=== PATIENT | male | born 1965 ===

== ENCOUNTER 2020-02-13 18:48 | Emergency (ER) | payer SELFPAY ==
[2020-02-13 18:57] VITALS: BP 121/81; PULSE 81; RESP 165; TEMP 36.6; O2SAT 95; BMI 25.0
--- NOTE | 2020-02-13 19:24 | W.ED.GENADLT ---
HPI - General Adult General: Chief complaint: Psychiatric Symptoms Stated complaint: mhe Time Seen by Provider: 02/13/20 19:09 Source: patient Mode of arrival: ambulatory Limitations: no limitations History of Present Illness: HPI narrative: Patient is a 54-year-old male who presents to ED today after he was dropped off by police. According to patient he had went to his father's house asking for money and the father called the police. Patient tells me that the police told him he could either go to shelter or go to the emergency department. Patient has zero complaints at this time. Patient admits to methamphetamine use but does not want to detox. He is not suicidal or homicidal. He is not experiencing hallucinations. Police did not place an affidavit or 96-hour hold on patient's chart. They do not accompany patient-they simply dropped him off at the emergency department. Onset (ago): hour(s) Associated symptoms: Deny chest pain, dyspnea, headache(s) or rash Review of Systems Const: Denies: fever(s) or chills Eyes: Denies: change in vision Card: Denies: chest pain Resp: Denies: dyspnea GI: Denies: abdominal pain Musc: Denies: neck pain or back pain Skin/Breast: Denies: rash Neuro: Denies: headache(s), numbness in extremities, weakness in extremities or sensory changes Psych: Denies: depression, hopelessness, paranoia, visual hallucinations, auditory hallucinations, suicidal ideation or homicidal ideation [facility] ED PFSH: Social History Smoking and tobacco status: current every day smoker Physical Exam Const: COMMON NORMALS: no acute distress, average body habitus, patient oriented x3, no limitations, healthy appearing, alert and well nourished ORIENTATION/CONSCIOUSNESS: Yes oriented to person, Yes oriented to place and Yes oriented to time Resp: COMMON NORMALS: normal respiratory effort Neuro: ARELI COMA SCALE: document GCS findings [place] coma scale eye opening: Spontaneous Areli coma scale verbal response: Orientated [place] coma scale motor response: Obey commands Areli coma scale total score: 15 COMMON NORMALS: patient oriented x3, moves all extremities, no focal motor deficits, no sensory deficits noted and gait normal SENSORIUM/ORIENTATION: Yes alert, Yes oriented to person, Yes oriented to place and Yes oriented to time Psych: COMMON NORMALS: mental status grossly normal, Normal thought process present, cooperative, normal affect, speech normal, denies hallucinations, denies homicidal ideation and denies suicidal ideation APPEARANCE: Yes grossly normal ATTITUDE: Yes calm ACTIVITY/MOTOR BEHAVIOR: Yes appropriate eye contact and Yes psychomotor agitation (consistent with meth use) SPEECH: Yes normal speech MOOD & AFFECT: Yes euthymic mood THOUGHT PROCESS: Normal thought process present THOUGHT CONTENT: Yes Normal thought content present ATTENTION/CONCENTRATION: Yes attention grossly intact and Yes concentration grossly intact MEMORY/COGNITION: Yes memory grossly intact and Yes cognition grossly intact INSIGHT: Fair insight present (Psych) JUDGEMENT: Fair judgement present (Psych) Course Vital Signs: Vital signs: Vital Signs Temperature 97.8 F 02/13/20 18:57 Pulse Rate 76 02/13/20 19:32 Respiratory Rate 18 02/13/20 19:32 Blood Pressure 120/80 02/13/20 19:32 Pulse Oximetry 97 02/13/20 19:32 MDM - General Adult MDM Narrative: Medical decision making narrative: Patient has never voiced suicidality or homicidality thoughts to myself or any of the nursing or other staff in the emergency department. He does not want help for his methamphetamine addiction. He has no physical or mental complaints at this time and would like to go home. I have no grounds to keep patient here against his will thus he will be discharged. Lab Data: Labs: Lab Results 02/13/20 Range/Units 19:10 WBC Cancelled Corrected WBC Cancelled RBC Cancelled Hgb Cancelled Hct Cancelled MCV Cancelled MCH Cancelled MCHC Cancelled RDW Cancelled Plt Count Cancelled MPV Cancelled Gran % Cancelled Neut % (Auto) Cancelled Lymph % (Auto) Cancelled Bland % (Auto) Cancelled Eos % (Auto) Cancelled Baso % (Auto) Cancelled Neut # (Auto) Cancelled Lymph # (Auto) Cancelled Bland # (Auto) Cancelled Eos # (Auto) Cancelled Baso # (Auto) Cancelled Absolute Gran (aut o) Cancelled Nucleated RBC % (a uto) Cancelled Nucleated RBCs # Cancelled Discharge Plan Discharge Patient Disposition: Home, Self-Care Clinical Impression: Methamphetamine abuse Condition: Stable Prescriptions: No Action No Known Home Medications RF: 0 Discharge Orders: Discharge Order (Routine); Ordered 02/13/20 Ordered By: Jazmin Link Discharge Date/Time: 02/13/20 19:35 Coding Level of Care Code ED [employer] for [facility] Fwd
[2020-02-13 19:32] VITALS: BP 120/80; PULSE 76; RESP 18; O2SAT 97
--- NOTE | 2020-02-13 19:35 | PC.NURSE ---
i agree with this assessment
== END 2020-02-13 19:35 | disposition home or self-care (01) ==
PROVIDERS: Emergency Provider Physician Assistant
DX: F15.10 Other stimulant abuse, uncomplicated (principal); F17.210 Nicotine dependence, cigarettes, uncomplicated
CPT/HCPCS: 12345; 85025; 99284